=== PATIENT | female | born 1945 | race Caucasian/White ===

== ENCOUNTER 2017-10-17 00:49 | Emergency (ER) | payer OTHER ==
[~2017-10-17] VITALS: Ht 167.6 cm; Wt 61.2 kg
[2017-10-17 01:40] LABS: BASOPHILS # (AUTO) 0.1 K/uL (0.0-8.0); BASOPHILS % (AUTO) 0.8 % (0.0-2.0); EOSINOPHILS # (AUTO) 0.2 K/uL (0.0-0.7); EOSINOPHILS % (AUTO) 2.2 % (0.0-7.0); HEMATOCRIT 31.7 % (31.2-41.9); LYMPHOCYTES % (AUTO) 17.7 % (20.5-51.5); MEAN CORPUSCULAR HEMOGLOBIN 26.9 uug (24.7-32.8); MEAN CORPUSCULAR HGB CONC 32 g/dL (32.3-35.6); MEAN CORPUSCULAR VOLUME 85.4 fL (75.5-95.3); NEUTROPHILS # (AUTO) 7.8 K/uL (1.8-8.9); NEUTROPHILS % (AUTO) 70.3 % (38.5-71.5); PLATELET COUNT (AUTO) 129 K/uL (179-408); RED BLOOD CELL COUNT(AUTO) 3.71 MIL/uL (3.63-4.92); WHITE BLOOD COUNT (AUTO) 11.1 K/uL (3.8-11.8)
[2017-10-17 01:49] LABS: CREATININE 1.2 mg/dL (0.6-1.3); POTASSIUM 3.4 mmol/L (3.5-5.1)
[2017-10-17 02:02] LABS: BILIRUBIN,DIRECT 0.1 mg/dL (0.0-0.2); BILIRUBIN,TOTAL 0.3 mg/dL (0.2-1.0); TOTAL PROTEIN, SERUM 6.2 g/dL (6.4-8.2)
[2017-10-17] MEDS ORDERED: ONDANSETRON IV *ER 4 MG/2 ML VIAL IV ONE (03:15)
[2017-10-17] MEDS ORDERED: MORPHINE SULFATE 4 MG/1 ML DISP.SYRIN IV ONE (03:15)
--- NOTE | 2017-10-17 03:18 | NUR ---
[facility] Waiting for call back.
[2017-10-17] MEDS ORDERED: MORPHINE SULFATE 4 MG/1 ML DISP.SYRIN ONE (03:26)
[2017-10-17] MEDS ORDERED: ONDANSETRON 4 MG/2 ML VIAL ONE (03:26)
[2017-10-17] MEDS ORDERED: FUROSEMIDE 20 MG/2 ML VIAL IV ONE (03:30)
[2017-10-17] MEDS ORDERED: NITROGLYCERIN OINT 1 GM PACKET TP ONE ×2 (03:30→03:40)
[2017-10-17] MEDS ORDERED: FUROSEMIDE 40 MG/4 ML VIAL ONE (03:40)
--- NOTE | 2017-10-17 03:44 | NUR ---
Received transfer information. Pt is to be transferred to [facility]. ER to ER. phone number for report is [phone]. Admitting MD is Rhett. ALS transport ETA at [id number].
--- NOTE | 2017-10-17 03:52 | NUR ---
Report given to Julia. Waiting for transport to [facility] pt.
[2017-10-17 04:02] VITALS: BP 133/78
--- NOTE | 2017-10-17 04:16 | NUR ---
Transport here to transfer pt to [facility]. NAD noted. VSS.
== END 2017-10-17 04:18 | disposition short-term general hospital (02) ==
LOC: ER 00:56
DX: I11.0 Hypertensive heart disease with heart failure (principal); I50.9 Heart failure, unspecified; J44.9 Chronic obstructive pulmonary disease, unspecified; I48.91 Unspecified atrial fibrillation; I25.10 Atherosclerotic heart disease of native coronary artery without angina pectoris; E11.9 Type 2 diabetes mellitus without complications; E78.5 Hyperlipidemia, unspecified
CPT/HCPCS: 36415; 71045; 80048; 80076; 83605; 83880; 84484; 85025; 85730; 87040 ×2; 93005; 93970; 96374; 96375; 99285; A4663; J1940; J2270; J2405; 70030-TC